=== PATIENT | female | born 1970 | race Caucasian/White ===

== ENCOUNTER 2016-05-27 12:32 | Emergency (ER) | payer MEDICARE, OTHER ==
[2016-05-27] MEDS ORDERED: ORPHENADRINE 60 MG/2 ML AMP ONE (14:47)
[2016-05-27] MEDS ORDERED: MORPHINE 4 MG/ML SYR ONE (14:47)
== END 2016-05-27 15:56 | disposition home or self-care (01) ==
LOC: FASTR 12:32
DX: M54.5 Low back pain (principal); G35 Multiple sclerosis; E78.00 Pure hypercholesterolemia, unspecified
CPT/HCPCS: 72100; 81003; 96372; 99284; J2270